=== PATIENT | female | born 1990 | race Caucasian/White ===

== ENCOUNTER 2017-03-10 04:47 | Emergency (ER) | payer OTHER ==
[~2017-03-10] VITALS: Ht 162.6 cm; Wt 90.0 kg
[2017-03-10 05:00] VITALS: BP 106/72
[2017-03-10] MEDS ORDERED: MEDR4PAK PO (05:09)
[2017-03-10] MEDS ORDERED: OXYC1TAB23 PO (05:09)
[2017-03-10] MEDS ORDERED: MOTR200T44 PO (05:09)
[2017-03-10] MEDS ORDERED: BACT800T5 PO (05:09)
[2017-03-10] MEDS ORDERED: AMOX500C PO (05:09)
[2017-03-10] MEDS ORDERED: SULFAMETHOXAZOLE IV ONE (05:30)
[2017-03-10] MEDS ORDERED: D5W IV ONE (05:30)
[2017-03-10] MEDS ORDERED: PENICILLIN G POTASSIUM IV 5 MU in D5W MINI-BAG PLUS 100 ML IV ONE (05:30)
[2017-03-10] MEDS ORDERED: TRIMETHOPRIM IV ONE (05:30)
[2017-03-10] MEDS ORDERED: KETOROLAC 30 MG/ML VIAL (J1885) As Ordered ONE (06:10)
[2017-03-10] MEDS ORDERED: KETOROLAC 30 MG/ML VIAL (J1885) IV ONE (06:15)
== END 2017-03-10 07:13 | disposition home or self-care (01) ==
LOC: M ED 04:47
DX: L03.211 Cellulitis of face (principal)
CPT/HCPCS: 96374; 96375; 99283; J1885